=== PATIENT | female | born 1965 | race Caucasian/White ===

== ENCOUNTER → 2016-05-04 08:04 | Day surgery (SDC) | payer BC ==
--- NOTE | 2016-04-25 09:25 | HP ---
PREOPERATIVE HISTORY AND PHYSICAL: DATE OF ADMISSION/SURGERY: 05/04/16 This patient is scheduled for same-day surgery admission by Dr. Arango on 05/04/16. ATTENDING SURGEON: Sabino Arango MD (dictated by Morris Douglass NP). CHIEF COMPLAINT: Enlarging mass, upper back. HISTORY OF PRESENT ILLNESS: The patient is a 50-year-old female recently evaluated by Dr. Arango with a 1-year history of an enlarging mass on the upper back. It has become more bothersome and she wishes for it to be removed. She had an ultrasound of the mass which was not suspicious. Dr. Arango examined the patient and notes a 3 x 3 cm palpable lesion at the upper back, nontender, no overlying skin changes, no drainage. Dr. Arango has recommended excision of the mass, upper back as a same day surgery procedure and has described the nature of the surgical procedure, the relevant risks, benefits and alternatives and today I reviewed the typical same day surgery, as well as the expected postoperative care and recovery. The patient has had a chance to ask questions and stated that she understands the information and is satisfied with the answers given to her questions. She will sign surgical consent on the day of surgery. PAST MEDICAL HISTORY: Significant for insulin dependent diabetes, she had the onset of juvenile diabetes at age 8; hypertension, hypercholesterolemia. PAST SURGICAL HISTORY: Uterine ablation approximately 10 years ago, and a minor procedure for adhesive capsulitis left shoulder. OB HISTORY: 0. She is postmenopausal for the past 10 years. She is up -to- date with breast exam, mammogram, pelvic and Pap smear. MEDICATIONS: 1. Humalog insulin pump, which she regulates by counting carbohydrates. 2. Simvastatin 20 mg daily in the evening. 3. Ramipril 10 mg daily in the evening. 4. Gabapentin 600 mg daily in the evening and she is taking the gabapentin for hot flashes. ALLERGIES: No known drug allergies. No latex or food allergies. FAMILY HISTORY: No known anesthesia complications, bleeding tendencies or clotting disorders. Mother is living at age 74, status post hemorrhagic stroke and dementia. Father living at age 75, status post ischemic stroke. 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 She has never been a smoker. She drinks alcohol on average 1 beverage per week and denies the use of other substances and exercises by walking daily. REVIEW OF SYSTEMS: She denies any recent constitutional symptoms; her weight is stable, her appetite is good; she denies any cardiac conditions or complaints or history of deep vein thrombosis or pulmonary embolism. She denies any respiratory conditions or complaints and has never had anesthesia complications. She is a type 1 diabetic having been diagnosed with juvenile diabetes at age 8 and is currently using a Humalog insulin pump. She denies any gastrointestinal conditions or complaints. She denies any genitourinary conditions or complaints. She denies any bleeding tendencies and has never received a blood transfusion. She denies any neurologic conditions or complaints. PHYSICAL EXAMINATION GENERAL SURVEY: The patient is a 50-year-old female well developed, well nourished, in no acute distress. VITAL SIGNS: Height 65 inches, weight 150 pounds, body mass index 25. Blood pressure 118/80, pulse 78 and regular, respiratory rate 18, temperature 98.5 tympanic. HEENT: Benign. NECK: Supple. No cervical lymphadenopathy. No thyromegaly. BACK: With obvious mass in the upper mid back measuring approximately 3 x 3 cm , it is soft and nontender without overlying skin changes and most likely consistent with lipoma. No CVA tenderness. LUNGS: Breath sounds bilaterally clear and equal. HEART: Regular rate and rhythm. No murmurs or rubs appreciated. ABDOMEN: Active bowel sounds. Soft and nondistended, nontender throughout. No obvious masses, organomegaly or evidence of umbilical hernia. PELVIC AND RECTAL EXAM: Done within the past year, not repeated. EXTREMITIES: Warm without edema or skin ulcerations. SKIN: Warm, dry and intact. NEUROLOGIC: Alert and oriented x3, steady gait. IMPRESSION: Enlarging mass, upper back. PLAN: Same day surgery admission to Dr. Arango's service on 05/04/16 , for excision of mass on the back. MORRIS DOUGLASS NP CC: Sabino Arango MD at [facility]; Harjinder Espinoza MD* [id number]/[facility] #: [id number] MTDMylene
[~2016-05-04 08:04] MED LIST: Bacitracin OINTMENT* 1 TUBE ONE; Buffered Lidocaine 1% SYRIN* 3 ML/SYR SYRINGE INTRADERM ONE; Bupivacaine 0.5% W/EPI SDV* 30 ML VIAL ONE; Famotidine IV* 10 MG/ML 2 ML (20 mg) IV ONE; Famotidine IV* 10 MG/ML 2 ML (20 mg) ONE; KETAMINE HCL* 50 MG/ML 10 ML VIAL ONE; Ketorolac INJ* 30 MG/ML 1 ML VIAL ONE; Lidocaine 1% INJ* 10 MG/ML 30 ML SDV ONE; Lidocaine 2% PF* 10 ML AMP ONE; Midazolam* 1 MG/ML 5 ML VIAL (5 MG) ONE; Morphine INJ* 2 MG/ML 1 ML SYRINGE IV PRN; Ondansetron INJ* 2 MG/ML VIAL ONE; PROCHLORPERAZINE INJ 5 MG/ML 2 ML VIAL IV PRN; Propofol* 10 MG/ML 20 ML BTL IV PUSH ONE; ceFAZolin 2 GM PREMIX(*) 2 GM/50 ML BAG IVPB ONE; fentaNYL* 50 MCG/ML 2 ML VIAL (100 MCG VIAL) IV PRN; fentaNYL* 50 MCG/ML 2 ML VIAL (100 MCG VIAL) ONE; oxyCODONE/Acetamin 5/325 MG* TAB PO PRN
--- NOTE | 2016-05-04 10:25 | SURGPN ---
Brief Operative Note - Surgery Procedures: Procedures Pre-OP Diagnoses: back mass Post-op Diagnosis: back lipoma Procedure: Excision of back lipoma Surgeon: Conchita Asst: none Anethesia: local MAC [place] EBL: minimal IVF: crystalloid Specimen: lipoma Drains: none
[2016-05-04 10:51] VITALS: BP 131/78
--- NOTE | 2016-05-05 01:52 | OP ---
DATE OF OPERATION: 05/04/16 - [facility] DATE OF : 65 SURGEON: Sabino Arango MD LOAN REPRESENTATIVE: None. ANESTHESIOLOGIST: Dr. Treadwell. ANESTHESIA: Local MAC. PRE-OP DIAGNOSIS: Back mass. POST-OP DIAGNOSIS: Back lipoma. OPERATIVE PROCEDURE: Excision of back lipoma. BLOOD LOSS: Minimal. FLUIDS: Minimal crystalloid fluid given. SPECIMEN: 6 x 4 x 2 cm lipomatous lesion. DRAINS: None. COUNTS: Lap pad count and instrument count correct at the end of the procedure. DESCRIPTION OF PROCEDURE: The patient was identified in the preoperative area. The lesion marked and case discussed with her. Consent was signed. The patient was brought to the operating room, placed in the operating table in the prone position. Gentle sedation was given. The patient's upper back was prepped and draped in the standard surgical fashion and time-out was performed. Injection of lidocaine along the proposed incision, which was a longitudinal midline incision. Flaps were made both left and right as well as inferior and superiorly and lipomatous material was identified. This was dissected off of the subcutaneous space as well as into the musculature of the strap muscles. It was passed off as specimen. Hemostasis was achieved. The fascia at the strap muscles were then reapproximated with 2-0 Polysorb sutures in mattress fashion and wound was then irrigated, hemostasis achieved, and the skin defect was reapproximated with 3-0 Polysorb subcutaneous sutures followed by 4-0 Monocryl subcuticular sutures. Steri-Strips and sterile dressing were applied. The patient tolerated the procedure well, was awoken up in the OR, and transferred to the PACU in stable condition. CC: Dr. Harjinder Espinoza; [facility]* [id number]/[facility] #: [id number] MTDD
== END | disposition home or self-care (01) ==
LOC: OR 08:04
PROVIDERS: ATTEND Surgery
DX: D17.1 Benign lipomatous neoplasm of skin and subcutaneous tissue of trunk (principal); E10.9 Type 1 diabetes mellitus without complications; Z96.41 Presence of insulin pump (external) (internal); Z79.4 Long term (current) use of insulin; I10 Essential (primary) hypertension; E78.00 Pure hypercholesterolemia, unspecified
CPT/HCPCS: 88304; A9270-GY; J0690; J1885; J2001; J2250; J2405; J2704; J3010

== ENCOUNTER 2016-10-05 15:40 | Emergency (ER) | payer BC ==
[2016-10-05 17:26] VITALS: BP 130/76
--- NOTE | 2016-10-05 17:28 | UC ---
Lower Extremity/Ankle HPI - HPI Summary HPI Summary: DROPPED A VERY HEAVY DUTY COOKIE SHEET ON HER RIGHT FOOT LAST NIGHT ABOUT 8: 30PM. TODAY HAS WORSENING PAIN TOP OF RIGHT FOOT WITH BRUISING. PAIN WITH AMBULATION. - History of Current Complaint Chief Complaint: UCLowerExtremity Stated Complaint: FOOT INJURY Time Seen by Provider: 10/05/16 17:19 Hx Obtained From: Patient Onset/Duration: Sudden Onset, Lasting Hours, Still Present Severity Initially: Moderate Severity Currently: Moderate Pain Intensity: 7 Pain Scale Used: 0-10 Numeric Aggravating Factor(s): Standing, Ambulation Alleviating Factor(s): Rest Able to Bear Weight: Yes - Allergies/Home Medications Allergies/Adverse Reactions: Allergies Allergy/AdvReac Type Severity Reaction Status Date / Time No Known Allergies Allergy Verified 10/05/16 17:10 PMH/Surg Hx/FS Hx/Imm Hx Endocrine History: Diabetes - TYPE I - Surgical History Surgical History: Yes Surgery Procedure, Year, and Place[place] [facility] [place] [facility] [place] Family History Known Family History: Positive: Diabetes - Social History Alcohol Use: Weekly Alcohol Amount: 2-3 DRINKS/MONTH Substance Use Type: None Smoking Status (MU): Never Smoked Tobacco Have You Smoked in the Last Year: No Review of Systems Constitutional: Negative Skin: Bruising Respiratory: Negative Cardiovascular: Negative Gastrointestinal: Negative Musculoskeletal: Arthralgia, Edema All Other Systems Reviewed And Are Negative: Yes Physical Exam Triage Information Reviewed: Yes Appearance: Well-Appearing, No Pain Distress, Well-Nourished Vital Signs: Initial Vital Signs Temp 98.9 F 10/05/16 17:06 Pulse 67 10/05/16 17:06 Resp 18 10/05/16 17:06 BP 130/76 10/05/16 17:06 Pulse Ox 100 10/05/16 17:06 Vital Signs Reviewed: Yes Eyes: Positive: Conjunctiva Clear ENT: Positive: Hearing grossly normal Neck: Positive: Supple Respiratory: Positive: No respiratory distress, No accessory muscle use Cardiovascular: Positive: Pulses Normal Abdomen Description: Positive: Soft Musculoskeletal: Positive: ROM Intact, Edema @ - RIGHT FOOT MILDLY SWOLLEN, Other: - NO ANKLE TENDERNESS. ACHILLES INTACT. TTP RIGHT 2ND METATARSAL Neurological: Positive: Alert Psychological: Positive: Age Appropriate Behavior Skin: Positive: Other - BRUISING TOP OF RIGHT FOOT. Negative: rashes Diagnostics - Radiology RIGHT FOOT XRAY Xray Interpretation: No Acute Changes Radiology Interpretation Completed By: Radiologist Lower Extremity Course/Dx - Differential Dx/Diagnosis Provider Diagnoses: RIGHT FOOT CONTUSION Discharge - Discharge Plan Condition: Stable Disposition: HOME Patient Education Materials: Foot Contusion (ED) Referrals: Harjinder Espinoza MD [Primary Care Provider] - If Needed Additional Instructions: FOOT XRAY UNREMARKABLE. REST, ICE, ELEVATE CONTUSION: Your injury has resulted in a contusion -- a crushing of the deep tissues. No injury to important structures was detected during the physician's exam. Contusions vary in the amount of pain they cause, and in the length of time required for healing. Typically, the area will become bruised, and will remain painful to touch for two or three weeks. However, most patients are back to working and playing within a few days. After the initial period of rest and cold-packs, your symptoms (together with the doctor's recommendations) will determine how rapidly you can get back to full activity. Usually this means "do what feels okay, but don't do things that hurt." If re-examination was recommended, it's important to follow up as instructed. Call the doctor or return any time if pain increases, if swelling becomes severe, if you develop numbness or weakness in an injured extremity, or if any other alarming symptoms occur.
--- NOTE | 2016-10-05 17:51 | RAD ---
HISTORY: Trauma, second metatarsal pain COMPARISONS: None VIEWS: 3, Frontal, lateral, and oblique views of the right foot FINDINGS: BONE DENSITY: Normal. BONES: There is no displaced fracture. JOINTS: There is no arthropathy. ALIGNMENT: There is no dislocation. SOFT TISSUES: Unremarkable. OTHER FINDINGS: None. IMPRESSION: NO ACUTE OSSEOUS INJURY. IF SYMPTOMS PERSIST, RECOMMEND REPEAT IMAGING.
== END 2016-10-05 18:13 | disposition home or self-care (01) ==
LOC: UCEAST 15:40
DX: S90.31XA Contusion of right foot, initial encounter (principal); W20.8XXA Other cause of strike by thrown, projected or falling object, initial encounter; Y93.9 Activity, unspecified; Y92.9 Unspecified place or not applicable; E10.9 Type 1 diabetes mellitus without complications
CPT/HCPCS: 99211; G0463

== ENCOUNTER → 2017-11-17 11:11 | Day surgery (SDC) | payer BC ==
[~2017-11-17 11:11] MED LIST changes: -Bacitracin OINTMENT* 1 TUBE ONE; +Buffered Lidocaine 0.9% SYRIN* 5 ML/SYR SYRINGE INTRADERM ONE; +Buffered Lidocaine 0.9% SYRIN* 5 ML/SYR SYRINGE ONE; -Buffered Lidocaine 1% SYRIN* 3 ML/SYR SYRINGE INTRADERM ONE; +Bupivacaine 0.25% EPI 200,000* 30 ML SDV ONE; +Bupivacaine 0.25% SDV PF* 10 ML VIAL INJ ONE; -Bupivacaine 0.5% W/EPI SDV* 30 ML VIAL ONE; +DiMENhydriNATE IV* 50 MG/ML VIAL IV PUSH PRN; +EPINEPHRINE 1 MG/ML 1 ML VIAL ONE; -Lidocaine 1% INJ* 10 MG/ML 30 ML SDV ONE; -Lidocaine 2% PF* 10 ML AMP ONE; +Morphine INJ* 2 MG/ML 1 ML SYRINGE (TWO MG - NEW SYRINGE VERSION) IV PRN; -Morphine INJ* 2 MG/ML 1 ML SYRINGE IV PRN; +Morphine VIAL* 10 MG/ML 1 ML VIAL ONE; +Naloxone* 0.4 MG/ML 1 ML VIAL IV PRN; -Ondansetron INJ* 2 MG/ML VIAL ONE; +Ondansetron ODT TAB* 4 MG ONE; +Ondansetron TAB* 4 MG PO ONE; +PROCHLORPERAZINE INJ 5 MG/ML 2 ML VIAL ONE; +Phenylephrine INJ* 10 MG/ML 1 ML VIAL (10 MG) ONE; +Phenylephrine IV* 40 MCG/ML 10 ML SYRINGE ONE; +Scopolamine 1.5 mg* PATCH TRANSDERM PRN; +Scopolamine PATCH Remove* 1 NOTE MISC PATCH OFF ONE; -ceFAZolin 2 GM PREMIX(*) 2 GM/50 ML BAG IVPB ONE; +ceFAZolin 2 GM in NS PREMIX(*) 2 GM/100 ML BAG IVPB ONE
[2017-11-17 17:10] VITALS: BP 110/58
--- NOTE | 2017-11-18 20:37 | OP ---
OPERATIVE REPORT: DATE OF OPERATION: 11/17/17 DATE OF : 65 SURGEON: Timoteo Bañuelos MD FUSE CUTTER: ALFONSO Pedroza A physician assistant inventory manager was required for the length of the procedure for assistance with positioning, instrumentation, and closure. ANESTHESIOLOGIST: Dr. Jean Carlos Treadwell. ANESTHESIA: General anesthesia, regional interscalene block anesthesia. PRE-OP DIAGNOSES: 1. Right shoulder adhesive capsulitis and stiffness. 2. Right shoulder subacromial bursitis, rotator cuff tendinitis, and subacromial impingement. 3. Right shoulder possible biceps tendinosis. POST-OP DIAGNOSES: 1. Right shoulder adhesive capsulitis and stiffness. 2. Right shoulder subacromial bursitis, rotator cuff tendinitis, and subacromial impingement. OPERATIVE PROCEDURE: 1. Right shoulder manipulation under anesthesia. 2. Right shoulder arthroscopic lysis of adhesions and capsulotomy. 3. Right shoulder arthroscopic subacromial decompression. 4. Right shoulder arthroscopic extensive subacromial bursectomy. 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 No prior trauma. As the history and physical details, the patient was minimally responsive to the full spectrum of nonoperative management. Of note, the patient had had a contralateral left shoulder surgery by Dr. Burgess in 2013 for a frozen shoulder. I discussed risks and potential complications of surgery. The patient opted to go forward with surgery. ANTIBIOTICS: Ancef 2 g IV. IV FLUIDS: 1100 cc crystalloids. ETYH-BG-MIEL TIME: 55 minutes. ARTHROSCOPY FLUID UTILIZED: Unavailable information. SPECIMEN: None. IMPLANTS: None. COMPLICATIONS: None. ESTIMATED BLOOD LOSS: 0 cc. DESCRIPTION OF PROCEDURE: In the preoperative holding, the patient signed written consent. Operative extremity was marked in the preoperative holding. The patient underwent an interscalene and regional nerve block by Dr. Treadwell. The patient was taken back to the operating room and placed supine on the operating room table. The patient was sedated and general anesthesia was induced. A mini time-out was performed prior to manipulation under anesthesia with the patient in the supine position. I first did an exam under anesthesia to determine the patient's pre-manipulation range of motion with her under general anesthesia. The patient had 110 degrees of forward flexion, 60 degrees of external rotation , and 30 degrees of internal rotation with the shoulder in a position of 90 degrees of abduction. I next performed a manipulation under anesthesia. I was very careful to do no sudden movements, to move the shoulder very gradually and slowly, and to hold her bones very close to the shoulder joint. Palpable and audible popping was appreciated as the manipulation improved the range of motion. After the manipulation, I then measured her passive range of motion. She had 180 degrees of forward flexion, 90 degrees of external rotation, and 80 degrees of internal rotation with the shoulder in abducted position. Next, I placed patient in the lateral decubitus position. Axillary roll. Bony prominences padded. Perkins bag hardened. Right shoulder in longitudinal traction , 10 degrees, appropriate amount of forward flexion and abduction. The right shoulder was prepped and draped. Surgical time-out was performed formally. The glenohumeral joint was entered from posterior with a spinal needle and I infused 30 cc of normal saline. I then entered an arthroscope from posterior. I started a diagnostic arthroscopy. The patient clearly had had some tearing of capsule with manipulation under anesthesia. I was able to visualize a tear in the capsule directly posterior with muscle underneath it. Likewise, I could visualize that anterior. The shoulder was still very tight with only minimal joint space. I next established an anterior glenohumeral portal under direct visualization. I moved an arthroscope into the joint from anterior and debrided some of the red tinted fluid, blood which improved my visualization. I also debrided scar tissue in the rotator interval which nicely opened up the shoulder joint. I appreciated a very small several millimeter of wide Bankart bony lesion about the anteroinferior glenoid that seemed to have been pulled off by the IGHL ligament. I visualized the biceps and superior labrum, I did not appreciate a tear or tendinosis requiring biceps release, so no biceps release was performed. There were no significant articular cartilage lesions either visualized. No rotator cuff tendon tear. To debride the bony fragment and to continue to release the capsule required new portals. Therefore, I stopped using my direct anterior portal and instead created anterosuperior and anteroinferior portals to go along with my posterior portal and I used those 3 portals for the remainder of my work in the glenohumeral joint. I first debrided the bony fragment and removed it all from the joint, working from the anteroinferior and then the posterior portal. I then visualized that there was still capsule intact inferiorly from approximately the 4 o'clock to the 6 o'clock position if not more. There was also posterosuperior capsule that was intact. I took my hook tip cautery device and released the capsule inferiorly as well as posterosuperiorly, working from posterior. I was careful not to dive deep to the capsule to respect underlying musculature and axillary nerve. Very happy with my capsular release and having removed the small bony fragments , I was happy with the work in the glenohumeral joint. I removed fluid and instruments from the glenohumeral joint. I next moved to the subacromial space. I entered it with a plastic 5-mm cannula from anteriorly as well as from posteriorly. I encountered a significant amount of bursitis. I made a lateral subacromial portal under direct visualization. I debrided this bursitis with an arthroscopic shaver. There was some narrowing I thought about the anterior aspect of the subacromial space. Therefore, with an arthroscopic bur, I debrided the curve on the inferior aspect of the anterior acromion. There was no rotator cuff tear visible. I removed all fluid and instruments from the subacromial space. I placed [id number] and [id number] stitches using nylon 3-0 suture in the skin incisions. Xeroform, 4x4s, ABDs, foam tape. UltraSling without abduction pillow placed. Cooling unit. DISPOSITION: The patient will take Percocet as needed for pain control and aspirin 325 mg p.o. b.i.d. x14 days postoperatively. The aspirin is especially important because the patient has planned travel 5 days from now by air plane. I also stressed to the patient preoperatively that I want her to move about the cabin during that air plane flight to minimize the risk of DVT. The patient was provided wound care instructions. She will follow up with me in 10 to 14 days postoperatively for wound check. She will start physical therapy immediately even prior to her airline trip to get that right shoulder moving as the importance of this was stressed continually preoperatively. [id number]/[facility] #: [id number] FADI
== END | disposition home or self-care (01) ==
LOC: OR 11:11
PROVIDERS: ATTEND Orthopaedic Surgery
DX: M75.01 Adhesive capsulitis of right shoulder (principal); M75.51 Bursitis of right shoulder; M75.41 Impingement syndrome of right shoulder; G89.18 Other acute postprocedural pain; I10 Essential (primary) hypertension; E78.5 Hyperlipidemia, unspecified; K21.9 Gastro-esophageal reflux disease without esophagitis; E10.9 Type 1 diabetes mellitus without complications; Z79.4 Long term (current) use of insulin; Z96.41 Presence of insulin pump (external) (internal)
CPT/HCPCS: A9270-GY; J0690; J0780; J1885; J2250; J2270; J2704; J3010; J3490